=== PATIENT | male | born 1955 | race Caucasian/White ===

== ENCOUNTER → 2018-10-31 | Outpatient (CLI) | payer OTHER ==
[~2018-10-31] MED LIST: MELATONIN3 MG PO; NORCO 5-325 TA1 EACH PO
--- NOTE | ~2018-10-31 | 2DMMODE ---
[facility] [place] [address] 2 D/M-MODE ECHOCARDIOGRAM Name: CARL PERRY Room #: REG ON LICENSE OF [facility]#: [id number] Admission: 10/31/18 Attend Phys: Rajesh Calderón MD Discharge: Date of : 51 Date of Service: 10/31/18 1350 Report #: [id number] THIS REPORT FOR: //name// APPROVED REPORT Study performed: 10/31/2018 12:43:58 EXAM: Comprehensive 2D, Doppler, and color-flow Echocardiogram Patient Location: Out-Patient Room #: Echo lab 2 Status: routine BSA: 1.92 HR: 85 bpm BP: 126/86 mmHg Rhythm: NSR Other Information Study Quality: Good Indications Mitral Valve Disease Murmur 2D Dimensions RVDd: 35.86 mm IVSd: 10.95 (7-11mm) LVOT Diam: 21.98 (18-24mm) LVDd: 66.59 mm PWd: 10.80 (7-11mm) Ascending Ao: 31.69 (22-36mm) LVDs: 46.64 (25-40mm) Aortic Root: 36.67 mm IVC: 24.00 mm Volumes Left Atrial Volume (Systole) Single Plane 4CH: 101.96 mL Single Plane 2CH: 130.81 mL LA ESV Index: 71.00 mL/m2 Aortic Valve AoV Peak Luis.: 1.19 m/s AO Peak Gr.: 5.64 mmHg LVOT Max P.32 mmHg LVOT Max V: 0.91 m/s DODIE Vmax: 2.91 cm2 Mitral Valve E/A Ratio: 2.3 MV Decel. Time: 207.79 ms [facility] [address] [place] [address] 2 D/M-MODE ECHOCARDIOGRAM Name: CARL PERRY HATTIE Room #: REG ON LICENSE OF [facility]#: [id number] Admission: 10/31/18 Attend Phys: Rajesh Calderón MD Discharge: Date of : 51 Date of Service: 10/31/18 1350 Report #: [id number] MV E Max Luis.: 1.22 m/s MV A Luis.: 0.52 m/s MV PHT: 60.26 ms IVRT: 92.27 ms Pulmonary Valve PV Peak Luis.: 0.66 m/s PV Peak Gr.: 1.76 mmHg Pulmonary Vein P Vein S: 0.73 m/s P Vein A: 0.29 m/s P Vein D: 0.79 m/s P Vein A Dur.: 96.9 msec P Vein S/D Ratio: 0.92 Tricuspid Valve TR Peak Luis.: 2.82 m/s TR Peak Gr.: 31.85 mmHg PA Pressure: 42.00 mmHg Left Ventricle Left ventricle is dilated. There is normal left ventricular wall thickness. The left ventricular systolic function is normal. The left ventricular ejection fraction is within the normal range. LVEF is 55%. The left ventricular diastolic function is normal. Right Ventricle The right ventricle is normal size. The right ventricular systolic function is normal. Atria Left atrium is dilated. Right atrium is at the upper limits of normal. Aortic Valve The aortic valve is normal in structure. No aortic regurgitation is present. There is no aortic valvular stenosis. Mitral Valve The mitral valve is normal in structure. Moderate to severe mitral regurgitation No evidence of mitral valve stenosis. Tricuspid Valve The tricuspid valve is normal in structure. There is mild tricuspid regurgitation. Estimated PAP 42 mmHg. There is moderate pulmonary hypertension. Pulmonic Valve [facility] [address] [place] [address] 2 D/M-MODE ECHOCARDIOGRAM Name: CARL PERRY SABATTUS Room #: REG ON LICENSE OF [facility]#: [id number] Admission: 10/31/18 Attend Phys: Rajesh Calderón MD Discharge: Date of : 51 Date of Service: 10/31/18 1350 Report #: [id number] The pulmonary valve is normal in structure. Trace pulmonic regurgitation. Great Vessels The aortic root is normal in size. IVC is dilated and collapses >50% with inspiration. <Conclusion> Left ventricle is dilated. There is normal left ventricular wall thickness. The left ventricular systolic function is normal. The right ventricle is normal size. Left atrium is dilated. The aortic valve is normal in structure. At least moderate to severe mitral regurgitation There is mild tricuspid regurgitation. Estimated PAP 42 mmHg. <ELECTRONICALLY SIGNED> By: Rajesh Calderón MD 10/31/18 1350 1350 1350 Rajesh Calderón MD /INF
== END ==
LOC: CV 10:53
DX: I08.1 Rheumatic disorders of both mitral and tricuspid valves (principal); I27.20 Pulmonary hypertension, unspecified; R06.09 Other forms of dyspnea

== ENCOUNTER → 2018-11-07 | Outpatient (CLI) | payer OTHER ==
[~2018-11-07] VITALS: Ht 180.3 cm; Wt 72.6 kg
--- NOTE | ~2018-11-07 | EKG ---
[address] [place] [address] ELECTROCARDIOGRAM REPORT Name: JUAN PERRYJESUS KUHN 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1955 Requested By: Mandeep Barclay Order Number: [id number] MD: Sudeep Meade Measurements Intervals [place] Rate: 59 P: 56 AL: 153 QRS: 60 QRSD: 127 T: 72 QT: 424 QTc: 420 Interpretive Statements Sinus rhythm Left ventricular hypertrophy Compared to ECG 01/09/2009 15:45:53 Left ventricular hypertrophy now present Ventricular premature complex(es) no longer present Electronically Signed On 11-07-2018 8:08:46 CURRENCY COUNTER by Sudeep Meade [email or web address] <ELECTRONICALLY SIGNED> By: Sudeep Meade MD 11/07/18807 6 6 Sudeep Meade MD /NIRMAL
--- NOTE | ~2018-11-07 | TEE ---
[facility] [address] [facility] [address] TRANSESOPHAGEAL ECHOCARDIOGRAM Name: CARL PERRY Room #: REG CL [facility]#: [id number] Admission: 11/07/18 Attend Phys: Mandeep Barclay, Discharge: Date of : 51 Date of Service: 11/07/18 0854 Report #: [id number] THIS REPORT FOR: //name// APPROVED REPORT Study performed: 11/07/2018 08:00:21 EXAM: Comprehensive 2D, Doppler, and color-flow Echocardiogram Patient Location: Out-Patient Room #: Holding Status: routine BSA: 1.92 HR: 72 bpm BP: 131/95 mmHg Rhythm: NSR Other Information Study Quality: Excellent Indications Mitral Valve Disease Echo Enhancing Agent Indication: Rule out Shunt Agent(s) / Amount(s) Used: Agitated Saline 7 cc Procedure After obtaining informed consent, patient underwent transesophageal echo in the [employer]. Type of Sedation : Conscious Sedation Sedation was administered by Nubia Barrera RN. Sedation was achieved intravenously with: Versed (3 mg) Fentanyl (75 mcg) Transesophageal probe was inserted and advanced into esophagus without difficulty by Mandeep Barclay MD. Echo enhancement indication: R/O Septal defect. Echo enhancement agent administered: Agitated Saline The GERMAN was performed without complications. Throughout the procedure, the blood pressure, pulse oximetry, cardiac rhythm, and rate were monitored. The patient tolerated the procedure without adverse effects. Recovery from conscious sedation was uneventful and vital signs were stable. [facility] [address] [place] [address] TRANSESOPHAGEAL ECHOCARDIOGRAM Name: CARL PERRY Room #: REG CL [facility].#: [id number] Admission: 11/07/18 Attend Phys: Mandeep Barclay, Discharge: Date of : 51 Date of Service: 11/07/18 0854 Report #: [id number] Left Ventricle Left ventricle is dilated. There is normal LV segmental wall motion. There is normal left ventricular wall thickness. The left ventricular systolic function is normal. The left ventricular ejection fraction is within the normal range. LVEF is 55%. Right Ventricle The right ventricle is normal size. The right ventricular systolic function is normal. Atria Left atrium is dilated. No thrombus is visualized in the left atrium or appendage. Interatrial septum is intact without evidence of ASD or PFO. Right atrium is dilated. Aortic Valve The aortic valve is normal in structure. No aortic regurgitation is present. There is no aortic valvular stenosis. Mitral Valve Severe mitral regurgitation. No evidence of mitral valve stenosis. There is a ruptured chordae with flail posterior leaflet. Tricuspid Valve The tricuspid valve is normal in structure. Mild tricuspid regurgitation. Pulmonic Valve The pulmonary valve is normal in structure. There is no pulmonic valvular regurgitation. Great Vessels The aortic root is normal in size. The ascending aorta is normal in size. IVC is normal in size and collapses >50% with inspiration. Pericardium There is no pericardial effusion. Critical Notification Critical Value: Yes Physician Notified Date: 11/07/2018 <Conclusion> The left ventricular systolic function is normal. [facility] [address] [place] [address] TRANSESOPHAGEAL ECHOCARDIOGRAM Name: CARL PERRY [id number] Admission: 11/07/18 Attend Phys: Mandeep Barclay, Discharge: Date of : 51 Date of Service: 11/07/18 0854 Report #: [id number] There is normal LV segmental wall motion. Left ventricle is dilated. LVEF 55%. Interatrial septum is intact without evidence of ASD or PFO. Left atrium is dilated. No thrombus in left atrial appendage The aortic valve is normal in structure. No aortic regurgitation or stenosis Ruptured mitral chordae with flail posterior leaflet. Severe mitral regurgitation. The tricuspid valve is normal in structure. There is no pericardial effusion. <ELECTRONICALLY SIGNED> By: Mandeep Barclay MD, [facility] 11/07/18 0854 0854 0854 Mandeep Barclay MD, FACC /INF
--- NOTE | ~2018-11-07 | CATHLAB ---
[facility] [place] [address] INVASIVE PROCEDURE REPORT Name: CARL PERRY Room #: REG CL [facility]#: [id number] Admission: 11/07/18 Attend Phys: Mandeep Barclay, Discharge: Date of : 51 Date of Service: 11/07/18 1106 Report #: [id number] THIS REPORT FOR: //name// APPROVED REPORT Study performed: 11/07/2018 09:29:01 Patient Details Patient Status: Out-Patient Room #: The patient is a 63 year-old male Event Personnel Rajesh Calderón Typing Section Chief, Sangeetha Trinidad RTR, TOOL PUSHER Monitor, Yifan Mckeon RN, Edin Barraza Scrub Procedures Performed Art Access - R femoral artery* Left Heart Cath w/or w/o Coronaries [id number] [facility] [address] Initial Mod Sed Same Phys/QHP 5y [id number] Hemostasis with Manual pressure Indication Dyspnea, Valvular heart disease, Pre-op clearance Procedure Narrative The Right Groin^ was infiltrated with 1% Lidocaine subcutaneous anesthesia. A PINNACLE 4FR Sheath #[id number] sheath was inserted into the RFA^. Coronary angiography was performed using coronary diagnostic catheters. The right coronary system was accessed and visualized with a JR4 catheter. The left coronary system was accessed and visualized with a JL4 catheter. The left ventricle was accessed and visualized with a ANGLED PIGTAIL catheter. Left ventricular/Aortic Valve gradient assessed via catheter pullback. Left ventriculogram was performed in 30 degree projection. Hemostasis was obtained with manual pressure following sheath removal without any complications. The patient tolerated the procedure well and there were no complications associated with the procedure. There was no hematoma. Intraoperative Conscious Sedation Sedation start time: 09:49 Case end Time: 10:14 Fentanyl 50 mcg Versed 1.5 mg Fluoro Time: 1.43 minutes Dose: DAP 2405.40 cGycm2 319 mGy [facility] [place] [place] [address] INVASIVE PROCEDURE REPORT Name: VICKYCARL MATTA WAKITA Room #: REG CL [facility]#: [id number] Admission: 11/07/18 Attend Phys: Mandeep Barclay, Discharge: Date of : 51 Date of Service: 11/07/18 1106 Report #: [id number] Contrast Type and Amount: Omnipaque 85 ml Coronary Angiography The patient's coronary anatomy is right dominant. Diagnostic Cath Left Main This is a patent vessel, with no flow-limiting lesions. LAD This is a moderate size caliber vessel, traversing the anterior wall and wrapping around the apex. There is mild disease in the proximal segment, less than 10%. Diagonal 1 This is a moderate size caliber vessel extending down the anterolateral wall, with no flow-limiting lesions. Circumflex Supplies 2 moderate size OM vessels. OM1 This is a moderate size caliber vessel, divides into 2 branches. There is mild disease in the proximal segment, less than 20%. OM2 This is a moderate size caliber vessel, with no flow-limiting lesions. Right Coronary This is a dominant vessel with minimal disease in the mid segment. R PDA This is a moderate size caliber vessel, with no flow-limiting lesions. RPLV This is a patent vessel, with no flow-limiting lesions. Left Ventriculography The left ventricle is mildly dilated in size with normal contractility. The left ventricular ejection fraction is estimated to be 60%. There is 3 - 4+ mitral insufficiency. Hemodynamics The aortic pressure is 123/80 mmHg with a mean of 98 mmHg. The left ventricular pressure is 131/18 mmHg with a mean of mmHg. The left ventricular end diastolic pressure is 30 mmHg. Conclusion 1. Mild disease as noted in the LAD and OM1. 2. Severe mitral insufficiency. 3. Normal LV systolic function. 4. Recommend a surgical evaluation. <ELECTRONICALLY SIGNED> By: Rajesh Calderón MD 11/07/18 1106 05 05 Rajesh Calderón MD /INF
[2018-11-07 07:22] VITALS: BP 141/87
[2018-11-07 07:32] LABS: HEMATOCRIT 46.8 % (42.0-52.0); HEMOGLOBIN 15.7 gm/dL (14.0-18.0); MCH 30.6 pg (26.0-34.0); MCHC 33.6 g/dL (28.0-37.0); MCV 91.1 fL (80.0-100.0); RBC 5.14 mil/uL (4.50-6.00); RDW 13.1 % (10.5-14.5); WBC 5.1 thou/uL (4.0-11.0)
[2018-11-07 07:44] LABS: CREATININE 0.9 mg/dL (0.7-1.3); POTASSIUM 3.7 mmol/L (3.5-5.1)
== END | disposition home or self-care (01) ==
LOC: CATH 06:54
PROVIDERS: Internal Medicine
DX: I25.10 Atherosclerotic heart disease of native coronary artery without angina pectoris (principal); I34.0 Nonrheumatic mitral (valve) insufficiency; N40.0 Benign prostatic hyperplasia without lower urinary tract symptoms; F17.210 Nicotine dependence, cigarettes, uncomplicated; Z98.890 Other specified postprocedural states; Z79.899 Other long term (current) drug therapy; Z88.0 Allergy status to penicillin

== ENCOUNTER 2019-03-04 19:59 | Inpatient (IN) | payer OTHER, MEDICARE ==
[~2019-03-04] VITALS: Ht 180.3 cm; Wt 68.0 kg
[2019-03-04 20:01] VITALS: BP 107/74
[2019-03-04] MEDS ORDERED: PACERONE 200 M200 M1 PO (20:14)
[2019-03-04] MEDS ORDERED: XARELTO10 MG PO (20:15)
[2019-03-04] MEDS ORDERED: TOPROL XL25 MG PO (20:15)
[2019-03-04] MEDS ORDERED: LIPITOR 20 MG T20 M1 PO (20:16)
[2019-03-04 20:28] LABS: ABSOLUTE NEUTROPHILS 11.3 thou/uL (1.4-8.2); BASOPHILS 0.9 % (0.0-2.0); EOSINOPHILS 0.1 % (0.0-3.0); HEMATOCRIT 42.4 % (42.0-52.0); HEMOGLOBIN 14.3 gm/dL (14.0-18.0); MCH 29.3 pg (26.0-34.0); MCHC 33.7 g/dL (28.0-37.0); MCV 86.9 fL (80.0-100.0); MONOCYTES 7.4 % (1.0-8.0); PLATELET COUNT 335 thou/uL (150-400); POLYS 79.6 % (36.0-66.0); RBC 4.88 mil/uL (4.50-6.00); WBC 14.2 thou/uL (4.0-11.0)
[2019-03-04 20:35] LABS: CALCIUM 8.7 mg/dL (8.5-10.1); CREATININE 1.2 mg/dL (0.7-1.3); POTASSIUM 3.9 mmol/L (3.5-5.1)
[2019-03-04 21:25] VITALS: BP 107/74
--- NOTE | 2019-03-04 21:30 | NUR ---
Pt. admitted to the unit from the emergency room accompanied by staff and his . He was oriented to room and staff. Pt. offers no complaints. Admission assessment and history is completed.
[2019-03-04 21:40] VITALS: BP 112/75
[2019-03-04 21:48] LABS: URINE BILIRUBIN NEGATIVE (Negative); URINE BLOOD NEGATIVE (Negative); URINE CLARITY CLEAR; URINE COLOR YELLOW; URINE GLUCOSE-RANDOM* NEGATIVE (Negative); URINE KETONES TRACE (Negative); URINE LEUKOCYTES-REFLEX NEGATIVE (Negative); URINE NITRITE-REFLEX NEGATIVE (Negative); URINE PROTEIN (DIPSTICK) 1+ (Negative); URINE UROBILINOGEN 0.2 E.U./dl (0.2-1.0)
[2019-03-04 21:55] LABS: HYALINE CASTS 0-3 Few /LPF (None Seen); SQUAMOUS >10 Many /LPF (0-3)
[2019-03-04 21:56] LABS: MUCUS >6 Heavy strn/LPF (None Seen)
[2019-03-04 21:57] LABS: BACTERIA-REFLEX None Seen /HPF (None Seen); URINE RBC None Seen /HPF (0-2); URINE WBC-REFLEX 0-5 Rare /HPF (0-5)
[2019-03-04] MEDS ORDERED: NEURONTIN 300300 M1 PO ×2 (22:46→22:47)
[2019-03-04] MEDS ORDERED: OMEPRAZOLE20 M1 PO (22:48)
[2019-03-05 03:45] VITALS: BP 120/74
--- NOTE | 2019-03-05 04:38 | NUR ---
Pt. was c/o left sided rib cage pain. Po pain med and muscle relaxer given (see emar) with some relief noted. Pt. currently resting quietly in the bed.
[2019-03-05 07:45] VITALS: BP 127/73
--- NOTE | 2019-03-05 11:49 | NUR ---
ASSUMED CARE THIS AM, SHIFT ASSESSMENT DONE, VSS, MEDS GIVEN. DENIES ANY PAIN THIS AM, NO FEVER. CONSULTS CALLED, RECEIVING IV ANTIBIOTICS, UP AD NELIDA. WILL CONTINUE TO ASSESS AND ASSIST WITH ADLs NEEDED.
--- NOTE | 2019-03-05 13:43 | EKG ---
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1955 Requested By: Shivani Garza Order Number: [id number] MD: Mandeep Barclay Measurements Intervals [place] Rate: 83 P: 50 [place]: 165 QRS: 9 QRSD: 123 T: 118 QT: 398 QTc: 468 Interpretive Statements Sinus rhythm Left atrial enlargement LVH with secondary repolarization abnormality Minimal ST elevation, inferior leads Compared to ECG 11/07/2018 07:17:09 Atrial abnormality now present Early repolarization now present Electronically Signed On 03-05-2019 13:43:45 CDT by Mandeep Barclay [email or web address] ��������������������������������������������� <ELECTRONICALLY SIGNED> ���������������������������������������� By: Mandeep Barclay MD, [facility] ��������������������������������������������� 03/05/19 1343 07 07 Mandeep Barclay MD, [facility] /EPI
--- NOTE | 2019-03-05 13:48 | EKG ---
[place] [address] [facility] [place] [address] ELECTROCARDIOGRAM REPORT Name: JUAN PERRYALL HATTIE Room #: 460-P ADM IN M.R.#: [id number] ������������������ Admission: 03/04/19 ������������������ Attend Phys: Peter Santacruz MD Discharge: ������������������ Date of : 51 Report #: [id number] ����������������������������������������������������������������� [id number] THIS REPORT FOR: //name// [facility] Test Date: 2019-03-05 Test Time: 07:31:22 Pat Name: CARL PERRY Department: Room: 460 P Gender: M Director Systems: : 1955 Requested By: Shannon Bustillos Order Number: [id number] MD: Mandeep Barclay Measurements Intervals [place] Rate: 91 P: 51 [place]: 171 QRS: 12 QRSD: 119 T: 173 QT: 366 QTc: 451 Interpretive Statements Sinus rhythm Left atrial enlargement LVH with secondary repolarization abnormality Compared to ECG 11/07/2018 07:17:09 No significant change was found Electronically Signed On 03-05-2019 13:48:20 CDT by Mandeep Barclay [email or web address] ��������������������������������������������� <ELECTRONICALLY SIGNED> ���������������������������������������� By: Mandeep Barclay MD, [facility] ��������������������������������������������� 03/05/19 1348 0 0 Mandeep Barclay MD, [facility] /EPI
[2019-03-05 14:13] VITALS: BP 134/76
--- NOTE | 2019-03-05 16:37 | NUR ---
REPORTED COUGH, PRN COUGH MEDICATION GIVEN. REPORTED PAIN, PRN PAIN MED GIVEN. WILL CONTINUE TO ASSESS AND ASSIST WITH ADLs NEEDED.
[2019-03-05 19:47] VITALS: BP 123/65
--- NOTE | 2019-03-06 05:56 | NUR ---
Assumed care at 1845. Pt resting in bed. Denies pain. VSS. Hasnt been coughing much today. No identified needs at the moment. Will continue to monitor.
[2019-03-06 05:58] LABS: HEMATOCRIT 39.7 % (42.0-52.0); HEMOGLOBIN 13.1 gm/dL (14.0-18.0); MCH 29.2 pg (26.0-34.0); MCV 88.5 fL (80.0-100.0); RBC 4.48 mil/uL (4.50-6.00); RDW 14.3 % (10.5-14.5); WBC 11.6 thou/uL (4.0-11.0)
[2019-03-06 08:00] VITALS: BP 146/90
--- NOTE | 2019-03-06 10:24 | HC ---
[facility] [address] [place] [address] CONSULTATION Name: CARL PERRY Room #: 460-P ADM IN M.R.#: [id number] Admission: 03/04/19 ������������������ Attend Phys: Alan Mcguire MD Discharge: ������������������ Date of : 51 Report #: [id number] THIS REPORT FOR: //name// CC: Peter Rankin DATE OF SERVICE: 03/05/2019 INFECTIOUS DISEASES CONSULTATION REASON FOR CONSULTATION: Evaluate postoperative fever. HISTORY OF PRESENT ILLNESS: The patient was a 63-year-old with mitral valve disease, who underwent a mitral valve ring repair at [facility] 8 weeks ago. Postoperative complications included atrial fibrillation, which failed cardioversion and he was placed on amiodarone, with good results. Following return to [place], he developed low-grade fever associated with nonproductive cough. No chest pain or shortness of breath. He also had one episode of gross hematuria. This was approximately 2 weeks ago that the fevers and the hematuria developed. For this, he was placed on Bactrim. He noticed while on Bactrim, he did cough up a fairly large sputum collection, which then resolved his cough. He has been afebrile for approximately 2 weeks after starting his antibiotics. Three days prior to his hospitalization, he developed fevers again up to 102 degrees. With this, he developed left-sided chest pain, more pleuritic in nature. Intermittent cough with no sputum production. Shortness of breath. No further urinary complaints. Hospitalized for further evaluation. Since admission, he has had temperature up to 99.9 degrees and hemodynamically, he has been stable, without evidence of atrial fibrillation or heart failure. He denies any peripheral edema. He has had no seizure or stroke symptoms. Denies any rash or adenopathy. No recent dental work. No other travel outside the [place]. No nausea, vomiting or diarrhea. REVIEW OF SYSTEMS: A 10-point review of systems is negative, other than what is described above. ALLERGIES: PENICILLIN. He does tolerate cephalosporins. MEDICATIONS: As noted on his JAN, having recently discontinued Bactrim as of 02/22/2019. He is now on vancomycin, cefepime and azithromycin. PAST MEDICAL HISTORY: Rheumatic mitral valvular disease, surgery as noted above; BPH; multiple concussions; inguinal herniorrhaphy and mitral valve repair on 01/04/2019. FAMILY HISTORY: Noncontributory. [address] [address] CONSULTATION Name: CARL PERRY HATTIE Room #: 460-P [facility] IN M.R.#: [id number] Admission: 03/04/19 ������������������ Attend Phys: Alan Mcguire MD Discharge: ������������������ Date of : 51 Report #: [id number] SOCIAL HISTORY: Intermittent tobacco use with cigars and daily alcohol use with beer, none since 12/2018. PHYSICAL EXAMINATION: VITAL SIGNS: Afebrile and hemodynamically stable. GENERAL: Alert, cooperative and pleasant, in no acute distress. He had some discomfort when he tried to lay down with left-sided chest pain. SKIN: Without rash or decubitus. No palpable adenopathy. Right axillary incision was well approximated. HEENT: Eyes without scleral icterus. Mouth without mucositis. NECK: Supple, with no thyromegaly or mass. LUNGS: With decreased breath sounds in the left base posteriorly. Few crackles and consolidation heard in the mid left posterior lateral chest. I did not appreciate a rub. HEART: Regular, without murmur, gallop or rub. ABDOMEN: Soft, nontender. No hepatosplenomegaly or mass appreciated. Right CVA tenderness evident. No spinal tenderness. GENITAL AND RECTAL EXAMINATION: Not performed. EXTREMITIES: Without cyanosis, clubbing or edema. No evidence of peripheral emboli. NEUROLOGIC: Cranial nerves were intact. Strength in his upper and lower extremities was normal. Sensation intact. Mood normal. Mental status normal. LABORATORY DATA: Blood cultures are negative to date. Sputum culture is pending. Influenza antigen negative. Sodium 140, potassium 3.9, bicarbonate 26 and creatinine 1.2. Hemoglobin 14.3, platelet count 335,000 and white count was 14.2. Urinalysis with 1+ protein, rare wbc's, no rbc's or bacteria. Chest x-ray with left lower lobe infiltrate and effusion. IMPRESSION: 1. A 63-year-old, 8 weeks post mitral valve repair, with intermittent fevers associated now with finding of left lower lobe pneumonia and effusion. Unclear if this is the process that has been ongoing for the last month. This would have been partially treated given the Bactrim use 2 weeks ago. 2. Intermittent gross hematuria, now with right flank tenderness. Unclear if this has underlying stone disease or this is all prostatic in nature. 3. Rheumatic heart disease. RECOMMENDATIONS: We will continue his current antibiotic program pending culture results. I agree with Cardiovascular Medicine recommendations for GERMAN. Obtain urine antigens as well as viral respiratory panel. Await sputum culture results. We would proceed with imaging of the chest by CAT scan to further evaluate the left pleural space. I suspect his chest pain is related to [facility] [address] [place] [address] CONSULTATION Name: CARL PERRY Room #: 460-P ADM IN M.R.#: [id number] Admission: 03/04/19 ������������������ Attend Phys: Alan Mcguire MD Discharge: ������������������ Date of : 51 Report #: [id number] pleuritis. While we are doing studies, we would image his abdomen as well to further assess the right kidney and his episodes of gross hematuria. ��������������������������������������������� <ELECTRONICALLY SIGNED> ���������������������������������������� By: Yoni Chanel MD ��������������������������������������������� 03/06/19 1024 1438 0049 Yoni Chanel MD /nt
--- NOTE | 2019-03-06 11:56 | 2DMMODE ---
[facility] [place] [address] 2 D/M-MODE ECHOCARDIOGRAM Name: CARL PERRY Room #: 460-P ADM IN M.R.#: [id number] ������������� Admission: 03/04/19 ������������� Attend Phys: Alan Mcguire, Discharge: ��� ������������� ��� Date of : 51 Date of Service: 03/06/19 1156 �� Report #: [id number] �������� ��������������������������������������������[id number] THIS REPORT FOR: //name// APPROVED REPORT Study performed: 03/06/2019 08:20:30 EXAM: Comprehensive 2D, Doppler, and color-flow Echocardiogram Patient Location: Echo lab Room #: [facility] Status: routine BSA: 1.87 HR: 85 bpm BP: 146/90 mmHg Rhythm: NSR/PVCs Other Information Study Quality: Good Indications Recurrent feveres, Rule out vegetation. Recent mitral valve repair. Hx: post op Afib. 2D Dimensions RVDd: 31.71 mm IVSd: 11.00 (7-11mm) LVOT Diam: 24.06 (18-24mm) LVDd: 54.23 mm PWd: 11.00 (7-11mm) Ascending Ao: 36.90 (22-36mm) LVDs: 39.82 (25-40mm) Aortic Root: 40.88 mm Volumes Left Atrial Volume (Systole) Single Plane 4CH: 32.12 mL Single Plane 2CH: 49.55 mL LA ESV Index: 23.00 mL/m2 Aortic Valve AoV Peak Luis.: 1.21 m/s AO Peak Gr.: 5.82 mmHg LVOT Max P.23 mmHg LVOT Max V: 1.03 m/s DODIE Vmax: 3.87 cm2 Mitral Valve E/A Ratio: 0.9 MV Decel. Time: 177.14 ms [facility] [place] [address] 2 D/M-MODE ECHOCARDIOGRAM Name: CARL PERRY [place] Room #: 460-[facility] IN M.R.#: [id number] ������������� Admission: 03/04/19 ������������� Attend Phys: Alan Mcguire, Discharge: ��� ������������� ��� Date of : 51 Date of Service: 03/06/19 1156 �� Report #: [id number] �������� ��������������������������������������������[id number] MV E Max Luis.: 1.03 m/s MV A Luis.: 1.18 m/s MV PHT: 51.37 ms IVRT: 103.81 ms Pulmonary Valve PV Peak Luis.: 0.79 m/s PV Peak Gr.: 2.51 mmHg Pulmonary Vein P Vein S: 0.79 m/s P Vein D: 0.54 m/s P Vein S/D Ratio: 1.46 Tricuspid Valve TR Peak Luis.: 2.56 m/s RAP Estimate: 5.00 mmHg TR Peak Gr.: 26.23 mmHg PA Pressure: 31.00 mmHg Left Ventricle The left ventricle is normal size. Borderline concentric left ventricular hypertrophy. Left ventricular systolic function is low normal. LVEF is 50%. Septal "bounce;" consider effusive/constrictive component. This study is not technically sufficient to allow evaluation of the LV diastolic function. Right Ventricle The right ventricle is normal size. The right ventricular systolic function is normal. Atria The left atrium size is normal. The right atrium size is normal. Aortic Valve The aortic valve is normal in structure. No aortic regurgitation is present. There is no aortic valvular vegetation noted. There is no aortic valvular stenosis. Mitral Valve Changes consistent with posterior mitral leaflet repair. Mean pressure gradient of 3mmHg. Probable annuloplasty ring Trace to mild mitral regurgitation. There is no mitral valve vegetation noted. No evidence of mitral valve stenosis. Tricuspid Valve The tricuspid valve is normal in structure. Mild tricuspid [facility] [address] [place] [address] 2 D/M-MODE ECHOCARDIOGRAM Name: CARL PERRY Room #: 460-P ADM IN [facility]#: [id number] ������������� Admission: 03/04/19 ������������� Attend Phys: Alan Mcguire, Discharge: ��� ������������� ��� Date of : 51 Date of Service: 03/06/19 1156 �� Report #: [id number] �������� ��������������������������������������������[id number] regurgitation. Estimated PAP is 30-35mmHg. There is no tricuspid valve vegetation noted. Pulmonic Valve The pulmonary valve is normal in structure. Trace pulmonic regurgitation. Great Vessels Aortic root is dilated. The ascending aorta is normal in size. IVC is normal in size and collapses >50% with inspiration. Pericardium Pericardial thickening; trace effusion Left and right pleural effusions noted. <Conclusion> Left ventricular systolic function is low normal. LVEF is 50%. Septal "bounce;" consider effusive/constrictive pericardial component. The aortic valve is normal in structure. No aortic regurgitation is present. Changes consistent with posterior mitral leaflet repair. Mean pressure gradient of 3mmHg. Probable annuloplasty ring Trace mitral regurgitation. Mild tricuspid regurgitation. Estimated PAP of 30-35mmHg. Pericardial thickening; trace effusion ��������������������������������������������� <ELECTRONICALLY SIGNED> ���������������������������������������� By: Mandeep Barclay MD, FACC ��������������������������������������������� 03/06/19 1156 1156 1156 Mandeep Barclay MD, FACC /INF
--- NOTE | 2019-03-06 13:33 | NUR ---
met with patient and at bedside. Patient admits with pna. 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 he cont to drive. Resides in independent home with . reports supportive family to assist at dc. [facility] following for dc planning.
[2019-03-06 15:00] VITALS: BP 148/89
[2019-03-06 19:34] VITALS: BP 145/86
--- NOTE | 2019-03-06 20:08 | NUR ---
Pt is alert and oriented x 4 and is able to use the call light efficiently. Echo done this am, no complaints of pain nor coughing was noted. Pt did have a fever late in the afternoon. acetamenophen given, fever resolved. POC follwed, IV removed due to infiltration then restarted on the right forearm. POC followed.
[2019-03-07 04:30] VITALS: BP 143/97
--- NOTE | 2019-03-07 08:07 | NUR ---
PROGRESS PT A/O X4, DID NOT SLEEP AT ALL LAST NIGHT, DENIES PAIN BUT TAKING SCHEDULED IBUPROFEN FOR FEVER. IV ANTIBIOTICS CONTINUE CONTINUE POC.
[2019-03-07 08:34] VITALS: BP 145/101
--- NOTE | 2019-03-07 10:34 | NUR ---
SW reviewed chart and spoke with nursing. Pt's Bertharelto is on hold for possible thoracentesis. Plan is for pt to d/c home when medically stable. LEDY is following to assist as needed with discharge planning.
[2019-03-07 16:06] VITALS: BP 131/87
--- NOTE | 2019-03-07 18:51 | NUR ---
Pt progressing well towards goals, independent in all adl's. Pt states he is a vegan and his brings his meals. Pt is scheduled to have a thoracenthesis tomorrow am, anti-pyretics to be avoided as per Dr. Chanel. Pt can have a light dinner tonight as per IR. Instructions given to the pt. Pt was afebrile for this shift, no issues identified or verbalized by the pt. PT/INR requested for 6 am colt am prior to procedure. Consent to be obtained colt am. Family at bedside. Transferred pt to room 455 from 460 as per request of the pt due to him not being able to sleep since 461 was making so much noise. Family is at bedside.INGRID ball
[2019-03-07 20:33] VITALS: BP 160/107
[2019-03-08 03:12] VITALS: BP 146/94
[2019-03-08 06:02] LABS: HEMATOCRIT 35.4 % (42.0-52.0); HEMOGLOBIN 11.8 gm/dL (14.0-18.0); MCH 29.1 pg (26.0-34.0); MCHC 33.4 g/dL (28.0-37.0); MCV 87.1 fL (80.0-100.0); RBC 4.06 mil/uL (4.50-6.00); RDW 14.3 % (10.5-14.5); WBC 6.4 thou/uL (4.0-11.0)
[2019-03-08 06:16] LABS: CALCIUM 8.6 mg/dL (8.5-10.1); CREATININE 0.7 mg/dL (0.7-1.3); POTASSIUM 3.6 mmol/L (3.5-5.1)
[2019-03-08 06:18] LABS: INR 1.1; PROTIME 11.3 Seconds (9.3-11.4)
[2019-03-08 07:43] VITALS: BP 156/86
--- NOTE | 2019-03-08 07:58 | NUR ---
progress pt a/o x4, lungs diminished in all fenton o2 sats wnl, has a cough non productive. vss, tele intact iv antibiotics administered as order.possible thoracentesis today. continue to monitor
--- NOTE | 2019-03-08 11:02 | NUR ---
RD visit with pt as he follows a vegan diet fairly closely. Pt indicates bringing in foods he prefers and able to order items of choice off hospital menu as well. Pt voiced no concerns.
[2019-03-08 13:40] VITALS: BP 167/104
[2019-03-08 14:00] LABS: COLOR YELLOW; SOURCE LT CHEST; TOTAL VOLUME 60 mL
[2019-03-08 14:01] LABS: CLARITY SL CLOUDY
[2019-03-08 14:10] LABS: BF NUCLEATED CELLS 482; BF RBC 528
--- NOTE | 2019-03-08 14:52 | NUR ---
PT UNDERWENT THORCENTESIS THIS DAY. CARE TEAM INDICATED THAT THEY ANTICPATE THAT PT MAY BE MEDICALLY STABLE TO DC HOME TOMORROW. CM FOLLOWING REGARDING DC PLANNING.
[2019-03-08 14:53] LABS: BF NEUTROPHILS 40
[2019-03-08 18:09] LABS: ADENOVIRUS Negative (Negative); INFLUENZA A Negative (Negative); INFLUENZA B Negative (Negative); METAPNEUMOVIRUS Negative (Negative); PARAINFLUENZA 1 Negative (Negative); PARAINFLUENZA 2 Negative (Negative); PARAINFLUENZA 3 Negative (Negative); RHINOVIRUS Negative (Negative); RSV A Negative (Negative); RSV B Negative (Negative)
--- NOTE | 2019-03-08 19:32 | NUR ---
Pt had a thoracethesis this am and more than 1 liter was collected. Complained of pain on the insertion site that would radiate up to his head. Pain medication given and xaralto restarted as per Dr. Ivy after i consulted. Pt is independent of all adl's. brings most of his meals. POC followed, no other issues or problems identified.
[2019-03-08 21:26] VITALS: BP 155/101
[2019-03-09 04:27] VITALS: BP 153/97
--- NOTE | 2019-03-09 08:49 | NUR ---
PROGRESS PT REPORTS FELS MUCH BETTER LUNGS SOUNDS NOT DIMINISHED PREVIUOS SHIFT, GOOD AIR MOVEMENT PT FEELS LESS CONSTRICTED THAN BEFORE THE THORACENTESIS. HOPESA TO DC HOME TODAY. VSS.
[2019-03-09 09:03] LABS: SOURCE THORACENTESIS
[2019-03-09 12:10] LABS: BODY FLUID ALBUMIN 2.1 g/dL (()); BODY FLUID AMYLASE 15 U/L (()); BODY FLUID GLUCOSE 104 mg/dL (()); BODY FLUID LDH 99 IU/L (()); BODY FLUID PROTEIN 3.7 g/dL (())
--- NOTE | 2019-03-09 12:57 | NUR ---
TOWARDS POC PT A/O X4, VSS, AFEBRILE. DENIES PAIN. PRN NAUSEA MED GIVEN. ANTICIPATING DC TODAY ONCE CLEARED BY ID. WILL CONTINUE TO MONITOR.
[2019-03-09 15:10] VITALS: BP 145/99
[2019-03-09 19:41] VITALS: BP 136/94
--- NOTE | 2019-03-10 02:23 | NUR ---
PT USED CALL LIGHT EFFECTIVELY PT DID NOT HAVE ANY COMPLAINTS OF COUGH PT SLEPT MOST OF THE NIGHT NO ISSUES OVERNIGHT.
[2019-03-10 04:27] VITALS: BP 145/102
[2019-03-10 08:25] VITALS: BP 138/97
[2019-03-10] MEDS ORDERED: CEFDINIR300 MG PO (15:03)
[2019-03-10 15:15] VITALS: BP 138/97
--- NOTE | 2019-03-10 15:36 | NUR ---
PT STABLE THROUGHOUT SHIFT. PT DISCHARGED HOME, LEFT UNIT VIA WHEELCAHIT TO PRIVATE VEHICLE.
--- NOTE | 2019-03-13 14:16 | HC ---
[facility] [place] [address] CONSULTATION Name: CARL PERRY Room #: 455-P [facility] IN M.R.#: [id number] Admission: 03/04/19 ������������������ Attend Phys: Alan Mcguire MD Discharge: 03/10/19 ������������������ Date of : 51 Report #: [id number] THIS REPORT FOR: //name// CC: Peter Rankin DATE OF SERVICE: 03/05/2019 REASON FOR CONSULTATION: Fever. HISTORY OF PRESENT ILLNESS: The patient is a 63-year-old with history of severe mitral regurgitation, status post recent minimally invasive mitral valve repair in [place], [place]. His hospitalization was around 10 days. This was somewhat prolonged due to atrial fibrillation. He was started on amiodarone and anticoagulation and eventually discharged home. Post-hospitalization, he did have a lot of chest pain related to the incision site. He also started having some hematuria and fevers. He was initiated on antibiotics per Dr. Rankin. He and his reports that he finished the antibiotics about a week ago. His chest pain had improved, but then he started having recurrent fevers. After several days of fevers, it was recommended that he be admitted to the hospital for further evaluation. Of note, the patient's recently had shingles, which is now resolved. PAST MEDICAL HISTORY: As above. SOCIAL HISTORY: Does not smoke. FAMILY HISTORY: Noncontributory. ALLERGIES: PENICILLIN. MEDICATIONS: Have been reviewed and he remains on the amiodarone and Xarelto therapy. REVIEW OF SYSTEMS: A 12-point review of systems was performed. GENERAL: He has been having fevers and chills. HEENT: No headache or sore throat. CARDIOVASCULAR: He has had some inspiratory chest pain. PULMONARY: He has had chronic cough, but this is nonproductive. GASTROINTESTINAL: No nausea or vomiting. GENITOURINARY: No dysuria. At this time, he did have some hematuria, which is resolved. ENDOCRINE: No heat or cold intolerance. NEUROLOGICAL: No focal weakness. PHYSICAL EXAMINATION: [facility] [address] [facility] [place] [address] CONSULTATION Name: CARL PERRY [place] Room #: 455-P [facility] IN M.R.#: [id number] Admission: 03/04/19 ������������������ Attend Phys: Alan Mcguire MD Discharge: 03/10/19 ������������������ Date of : 51 Report #: [id number] VITAL SIGNS: Temperature is 37.2, pulse 92, respiration 14, blood pressure 127/73, sats are 94%. GENERAL: He is alert, oriented x 3, in no acute distress. HEENT: Oropharynx is clear. Sclerae anicteric. He does not have any subconjunctival hemorrhages. Oropharynx is clear. NECK: Supple, no thyromegaly or carotid bruits. HEART: Regular rate and rhythm with no murmurs, rubs, gallops. His right-sided incision shows no evidence of infection. LUNGS: Clear with some decreased breath sounds at the left base. ABDOMEN: Soft, nontender, nondistended with no hepatosplenomegaly. EXTREMITIES: There is no clubbing, cyanosis or edema. NEUROLOGIC: Cranial nerves 2-12 are intact. LABORATORY DATA: White count is 14, hemoglobin 14, platelets 335. CRP is 593. Sodium 140, potassium 3.9, BUN 16, creatinine 1.2, glucose 188. Urine leukocyte esterase negative, rare white cells in the urine. Blood cultures are pending. Chest x-ray shows a small effusion on the left side and possible left lower infiltrate. ASSESSMENT AND PLAN: 1. Febrile illness. 2. Possible community acquired pneumonia. 3. Elevated CRP. 4. Status post recent mitral valve repair. 5. Atrial fibrillation and atrial flutter. 6. Prior severe mitral regurgitation. PLAN: In summary, the patient is 63-year-old, status post recent minimally invasive mitral valve repair. He presents with a febrile illness after a course of antibiotics. Differential for his fever include endocarditis versus pneumonia versus other infectious etiologies. Of note, recently had shingles as well. I recommend ID consultation and continuing broad spectrum antibiotics and awaiting the results of the cultures. We will start with an echocardiogram transthoracic tomorrow. We may need to consider transesophageal echo. If Pulmonary thinks that effusions need to be tapped, anticoagulation can be placed on hold. We will continue to follow. ��������������������������������������������� <ELECTRONICALLY SIGNED> ���������������������������������������� By: Sudeep Meade MD ��������������������������������������������� 03/13/19 1416 1238 31 Sudeep Meade MD /nt
== END 2019-03-10 16:00 | disposition home or self-care (01) | DRG 314 ==
LOC: ER 19:59 → EROBS 20:57 → 4W 20:57 → ENTRNSPT 03-10 15:22 → EDTRNSPTSTS 03-10 15:24 → 4W 03-10 16:00
PROVIDERS: Hospitalist; Nurse Practitioner Acute Care; Specialist; Student in an Organized Health Care Education/Training Program; ADMIT Hospitalist
PROC: 0W9B3ZZ Drainage of Left Pleural Cavity, Percutaneous Approach (ICD-10-PCS; principal; 2019-03-08)
DX: I31.9 Disease of pericardium, unspecified (principal); J18.1 Lobar pneumonia, unspecified organism; I48.92 Unspecified atrial flutter; J90 Pleural effusion, not elsewhere classified; N40.0 Benign prostatic hyperplasia without lower urinary tract symptoms; I48.0 Paroxysmal atrial fibrillation; R31.0 Gross hematuria; I09.9 Rheumatic heart disease, unspecified; F17.210 Nicotine dependence, cigarettes, uncomplicated; I34.1 Nonrheumatic mitral (valve) prolapse; E78.5 Hyperlipidemia, unspecified; I10 Essential (primary) hypertension; Z79.899 Other long term (current) drug therapy; Z28.21 Immunization not carried out because of patient refusal; Z88.0 Allergy status to penicillin
CPT/HCPCS: 10045

== ENCOUNTER → 2019-04-03 | Outpatient (CLI) | payer OTHER, MEDICARE ==
[~2019-04-03] MED LIST changes: +CEFDINIR300 MG PO; +LEVAQUIN 500 M500 M1 PO; +LIPITOR 20 MG T20 M1 PO; +NEURONTIN 300300 M1 PO; +OMEPRAZOLE20 M1 PO; +PACERONE 200 M200 M1 PO; +TOPROL XL25 MG PO; +XARELTO10 MG PO
== END ==
LOC: RAD 10:48
DX: J18.9 Pneumonia, unspecified organism (principal); Z98.890 Other specified postprocedural states

== ENCOUNTER 2019-04-07 19:55 | Emergency (ER) | payer OTHER, MEDICARE ==
[~2019-04-07 19:55] MED LIST changes: -LEVAQUIN 500 M500 M1 PO
[2019-04-07 20:31] LABS: URINE BILIRUBIN NEGATIVE (Negative); URINE BLOOD NEGATIVE (Negative); URINE CLARITY CLEAR; URINE COLOR YELLOW; URINE GLUCOSE-RANDOM* NEGATIVE (Negative); URINE KETONES NEGATIVE (Negative); URINE LEUKOCYTES-REFLEX NEGATIVE (Negative); URINE NITRITE-REFLEX NEGATIVE (Negative); URINE PROTEIN (DIPSTICK) NEGATIVE (Negative); URINE SPECIFIC GRAVITY <= 1.005 (1.005-1.035); URINE UROBILINOGEN 0.2 E.U./dl (0.2-1.0)
[2019-04-07 21:15] LABS: HEMATOCRIT 42.9 % (42.0-52.0); HEMOGLOBIN 14.4 gm/dL (14.0-18.0); MCH 29.4 pg (26.0-34.0); MCHC 33.7 g/dL (28.0-37.0); MCV 87.4 fL (80.0-100.0); PLATELET COUNT 183 thou/uL (150-400); RBC 4.91 mil/uL (4.50-6.00); RDW 15.7 % (10.5-14.5); WBC 10.8 thou/uL (4.0-11.0)
[2019-04-07 21:26] LABS: ANION GAP 8 mmol/L (7-16); BUN 12 mg/dL (7-18); CHLORIDE 103 mmol/L (98-107); CO2 27 mmol/L (21-32); CREATININE 0.9 mg/dL (0.7-1.3); GLUCOSE 103 mg/dL (74-106); POTASSIUM 4.2 mmol/L (3.5-5.1); SODIUM 138 mmol/L (136-145)
[2019-04-07 21:30] LABS: APTT 29.3 Seconds (24.5-32.8); INR 1.1; PROTIME 11.3 Seconds (9.3-11.4)
[2019-04-07 21:36] LABS: ALBUMIN 3.2 g/dL (3.4-5.0); SGOT 29 U/L (15-37); SGPT 36 U/L (30-65); TOTAL BILIRUBIN 0.8 mg/dL (<0.1-1.0); TOTAL PROTEIN 6.7 g/dL (6.4-8.2); TROPONIN-I <0.06 ng/mL (<0.06)
[2019-04-07] MEDS ORDERED: LEVAQUIN 500 M500 M1 PO (21:58)
[2019-04-07 22:04] LABS: ABSOLUTE NEUTROPHILS 8.2 thou/uL (1.4-8.2); METAMYELOCYTES 1 %
[2019-04-07 23:11] VITALS: BP 132/89
--- NOTE | 2019-04-08 11:03 | EKG ---
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 : 1955 Requested By: Yoni Pineda Order Number: [id number] MD: Mandeep Barclay Measurements Intervals [place] Rate: 98 P: 55 AZ: 159 QRS: 29 QRSD: 116 T: 122 QT: 327 QTc: 418 Interpretive Statements Sinus rhythm Left atrial enlargement Nonspecific repol abnormality, diffuse leads Compared to ECG 03/05/2019 07:31:22 No significant change was found Electronically Signed On 04-08-2019 11:02:53 CDT by Mandeep Barclay [email or web address] ��������������������������������������������� <ELECTRONICALLY SIGNED> ���������������������������������������� By: Mandeep Barclay MD, [facility] ��������������������������������������������� 04/08/191101 08 08 Mandeep Barclay MD, FACC /EPI
== END 2019-04-07 23:13 | disposition home or self-care (01) ==
LOC: ER 19:55
PROVIDERS: Emergency Medicine
DX: J18.9 Pneumonia, unspecified organism (principal); J90 Pleural effusion, not elsewhere classified; F17.210 Nicotine dependence, cigarettes, uncomplicated; Z88.0 Allergy status to penicillin

== ENCOUNTER → 2019-04-10 | Outpatient (CLI) | payer OTHER, MEDICARE ==
[~2019-04-10] MED LIST changes: +LEVAQUIN 500 M500 M1 PO
== END ==
LOC: RAD 15:56
DX: J90 Pleural effusion, not elsewhere classified (principal); J98.4 Other disorders of lung

== ENCOUNTER → 2019-04-20 | Outpatient (CLI) | payer OTHER, MEDICARE | LOC: RAD 09:11 | DX: J90 Pleural effusion, not elsewhere classified (principal); J84.10 Pulmonary fibrosis, unspecified; Z95.2 Presence of prosthetic heart valve ==

== ENCOUNTER → 2019-05-29 | Outpatient (CLI) | payer OTHER, MEDICARE | LOC: RAD 07:10 | DX: R06.00 Dyspnea, unspecified (principal); M47.815 Spondylosis without myelopathy or radiculopathy, thoracolumbar region; Z88.0 Allergy status to penicillin ==

== ENCOUNTER → 2019-06-08 | Outpatient (CLI) | payer OTHER, MEDICARE | LOC: ULTRA 08:08 | DX: K76.89 Other specified diseases of liver (principal); Z88.0 Allergy status to penicillin ==

== ENCOUNTER → 2019-06-14 | Outpatient (CLI) | payer OTHER, MEDICARE | LOC: RAD 08:38 | DX: R07.81 Pleurodynia (principal); Z88.0 Allergy status to penicillin ==

== ENCOUNTER → 2019-07-07 | Outpatient (CLI) | payer OTHER, MEDICARE ==
[2019-07-07 11:21] LABS: CREATININE 0.9 mg/dL (0.7-1.3)
== END ==
LOC: CAT 10:48
PROVIDERS: Surgery
DX: K76.89 Other specified diseases of liver (principal); R91.1 Solitary pulmonary nodule; M47.816 Spondylosis without myelopathy or radiculopathy, lumbar region; K57.30 Diverticulosis of large intestine without perforation or abscess without bleeding; Z95.4 Presence of other heart-valve replacement

== ENCOUNTER → 2019-12-22 | Outpatient (CLI) | payer OTHER, MEDICARE | LOC: SJCVC 10:35 | DX: R94.31 Abnormal electrocardiogram [ECG] [EKG] (principal); E78.00 Pure hypercholesterolemia, unspecified; I42.9 Cardiomyopathy, unspecified; I10 Essential (primary) hypertension; I48.0 Paroxysmal atrial fibrillation; Z79.899 Other long term (current) drug therapy ==

== ENCOUNTER → 2020-01-25 | Outpatient (CLI) | payer OTHER, MEDICARE | LOC: RAD 12:46 | DX: R06.02 Shortness of breath (principal) ==

== ENCOUNTER → 2020-05-28 | Outpatient (CLI) | payer OTHER, MEDICARE | LOC: LAB 08:14 | PROVIDERS: ATTEND Family Medicine | DX: Z20.828 Contact with and (suspected) exposure to other viral communicable diseases (principal) ==

== ENCOUNTER → 2020-06-24 | Outpatient (CLI) | payer OTHER, MEDICARE | LOC: SJCVCIMAG 08:20 | PROVIDERS: ATTEND Internal Medicine Cardiovascular Disease | DX: I07.1 Rheumatic tricuspid insufficiency (principal); R00.1 Bradycardia, unspecified; I11.9 Hypertensive heart disease without heart failure; R94.31 Abnormal electrocardiogram [ECG] [EKG]; I42.9 Cardiomyopathy, unspecified; J90 Pleural effusion, not elsewhere classified; I25.10 Atherosclerotic heart disease of native coronary artery without angina pectoris; E78.00 Pure hypercholesterolemia, unspecified; E78.5 Hyperlipidemia, unspecified; Z79.899 Other long term (current) drug therapy; Z98.890 Other specified postprocedural states; Z82.49 Family history of ischemic heart disease and other diseases of the circulatory system; Z87.891 Personal history of nicotine dependence ==

== ENCOUNTER → 2020-06-26 | Outpatient (CLI) | payer OTHER, MEDICARE | LOC: CAT 13:36 | PROVIDERS: ATTEND Internal Medicine | DX: R91.8 Other nonspecific abnormal finding of lung field (principal); M25.78 Osteophyte, vertebrae; K76.89 Other specified diseases of liver ==

== ENCOUNTER → 2020-09-17 | Outpatient (CLI) | payer OTHER, MEDICARE | LOC: SJCVC 09:39 | PROVIDERS: ATTEND Internal Medicine Cardiovascular Disease | DX: R00.1 Bradycardia, unspecified (principal); I47.1 Supraventricular tachycardia ==

== ENCOUNTER → 2020-12-06 | Outpatient (CLI) | payer OTHER, MEDICARE ==
[~2020-12-06] MED LIST changes: +CARVEDILOL12.5 MG PO
== END ==
LOC: SJCVC 09:30
PROVIDERS: ATTEND Internal Medicine Cardiovascular Disease
DX: I34.1 Nonrheumatic mitral (valve) prolapse (principal); I10 Essential (primary) hypertension; I42.9 Cardiomyopathy, unspecified; E78.00 Pure hypercholesterolemia, unspecified; I25.10 Atherosclerotic heart disease of native coronary artery without angina pectoris; I49.3 Ventricular premature depolarization; I47.1 Supraventricular tachycardia; E78.5 Hyperlipidemia, unspecified; I48.0 Paroxysmal atrial fibrillation; Z98.890 Other specified postprocedural states; Z79.899 Other long term (current) drug therapy; Z87.891 Personal history of nicotine dependence

== ENCOUNTER 2020-12-11 11:50 | Emergency (ER) | payer OTHER, MEDICARE ==
[~2020-12-11] VITALS: Ht 180.3 cm; Wt 72.6 kg
[~2020-12-11 11:50] MED LIST changes: -CARVEDILOL12.5 MG PO
[2020-12-11] MEDS ORDERED: CARVEDILOL12.5 MG PO (11:58)
[2020-12-11 12:47] LABS: ABSOLUTE NEUTROPHILS 2.5 thou/uL (1.4-8.2); BASOPHILS 0.8 % (0.0-2.0); EOSINOPHILS 1.1 % (0.0-3.0); HEMOGLOBIN 15.8 gm/dL (14.0-18.0); LYMPHOCYTES 36.3 % (24.0-44.0); MCH 31.1 pg (26.0-34.0); MCHC 33.6 g/dL (28.0-37.0); MCV 92.5 fL (80.0-100.0); MONOCYTES 9.8 % (1.0-8.0); PLATELET COUNT 192 thou/uL (150-400); RBC 5.08 mil/uL (4.50-6.00); WBC 4.8 thou/uL (4.0-11.0)
[2020-12-11 12:54] LABS: ANION GAP 7 mmol/L (7-16); BUN 11 mg/dL (7-18); CALCIUM 9.4 mg/dL (8.5-10.1); CHLORIDE 103 mmol/L (98-107); CO2 27 mmol/L (21-32); GLUCOSE 85 mg/dL (74-106); POTASSIUM 4.1 mmol/L (3.5-5.1); SODIUM 137 mmol/L (136-145)
[2020-12-11 13:03] LABS: D-DIMER 0.31 ug/mLFEU (0.19-0.50); INR 1.1; PROTIME 11.1 Seconds (9.3-11.4)
[2020-12-11 13:04] LABS: ALBUMIN 3.8 g/dL (3.4-5.0); SGOT 21 U/L (15-37); SGPT 28 U/L (16-63); TOTAL BILIRUBIN 1.1 mg/dL (0.2-1.0); TOTAL PROTEIN 6.6 g/dL (6.4-8.2); TROPONIN-I <0.06 ng/mL (<0.06)
[2020-12-11 13:42] VITALS: BP 142/87
--- NOTE | 2020-12-11 14:35 | EKG ---
[place] [address] [facility] [place] [address] ELECTROCARDIOGRAM REPORT Name: CARL PERRY 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 : 1955 Requested By: Edin Hernandez Order Number: [id number] MD: Sudeep Meade Measurements Intervals [place] Rate: 67 P: 81 AZ: 184 QRS: 80 QRSD: 121 T: 62 QT: 413 QTc: 436 Interpretive Statements Sinus rhythm Ventricular premature complex Probable left atrial enlargement Nonspecific intraventricular conduction delay Minimal ST depression, lateral leads Baseline wander in lead(s) II,III,aVF,V2 Compared to ECG 04/07/2019 20:09:57 Electronically Signed On 12-11-2020 14:34:52 SKID MAN by Sudeep Meade [email or web address] <ELECTRONICALLY SIGNED> By: Sudeep Meade MD 12/11/20 1434 1149 1149 Sudeep Meade MD /EPI
== END 2020-12-11 13:43 | disposition home or self-care (01) ==
LOC: ER 11:50
PROVIDERS: Emergency Medicine
DX: R07.89 Other chest pain (principal); F17.210 Nicotine dependence, cigarettes, uncomplicated; Z88.0 Allergy status to penicillin; Z79.899 Other long term (current) drug therapy; Z98.890 Other specified postprocedural states

== ENCOUNTER → 2021-06-17 | Outpatient (CLI) | payer OTHER, MEDICARE ==
[~2021-06-17] MED LIST changes: +CARVEDILOL12.5 MG PO
== END ==
LOC: SJCVCIMAG 08:24
PROVIDERS: ATTEND Internal Medicine Cardiovascular Disease
DX: I08.3 Combined rheumatic disorders of mitral, aortic and tricuspid valves (principal); E78.5 Hyperlipidemia, unspecified; I25.10 Atherosclerotic heart disease of native coronary artery without angina pectoris; I49.3 Ventricular premature depolarization; I42.9 Cardiomyopathy, unspecified; I48.0 Paroxysmal atrial fibrillation; I10 Essential (primary) hypertension; Z98.890 Other specified postprocedural states; Z79.899 Other long term (current) drug therapy; Z87.891 Personal history of nicotine dependence; Z88.0 Allergy status to penicillin; Z72.89 Other problems related to lifestyle; Z95.2 Presence of prosthetic heart valve

== ENCOUNTER → 2021-12-18 | Outpatient (CLI) | payer OTHER, MEDICARE | LOC: SJCVC 10:12 | PROVIDERS: ATTEND Internal Medicine Cardiovascular Disease | DX: I42.8 Other cardiomyopathies (principal); I10 Essential (primary) hypertension; E78.00 Pure hypercholesterolemia, unspecified; I25.10 Atherosclerotic heart disease of native coronary artery without angina pectoris; I47.1 Supraventricular tachycardia; I49.3 Ventricular premature depolarization; E78.5 Hyperlipidemia, unspecified; Z98.890 Other specified postprocedural states; Z88.0 Allergy status to penicillin; Z79.899 Other long term (current) drug therapy; Z87.891 Personal history of nicotine dependence; Z72.89 Other problems related to lifestyle; Z95.818 Presence of other cardiac implants and grafts; Z82.49 Family history of ischemic heart disease and other diseases of the circulatory system ==

== ENCOUNTER → 2022-01-13 | Outpatient (CLI) | payer OTHER, MEDICARE | LOC: RAD 11:17 | PROVIDERS: ATTEND Family Medicine | DX: R05.3 Chronic cough (principal) ==

== ENCOUNTER → 2022-01-21 | Outpatient (CLI) | payer OTHER, MEDICARE | LOC: MRI 10:25 | PROVIDERS: ATTEND Family Medicine | DX: I67.82 Cerebral ischemia (principal) ==